=== PATIENT | male | born 1970 | race Caucasian/White ===

== ENCOUNTER 2018-12-22 22:57 | Emergency (ER) | payer SELFPAY, OTHER ==
[2018-12-23] MEDS: KETOROLAC 60 MG INJ IM (03:24)
== END 2018-12-23 04:43 | disposition home or self-care (01) ==
LOC: FTE 22:57
DX: M54.5 Low back pain (principal); F17.210 Nicotine dependence, cigarettes, uncomplicated
CPT/HCPCS: 96372; 99284-25